=== PATIENT | male | born 1945 ===

== ENCOUNTER 2017-02-09 08:30 | Emergency (ER) | payer MEDICARE ==
[2017-02-09 08:33] VITALS: BMI 23.1
[2017-02-09 08:34] VITALS: TEMP 97.8
--- NOTE | 2017-02-09 09:19 | ED PDOC ---
Lower Extremity Pain/Injury Time Seen by Provider: 02/09/17 09:05 Chief Complaint (Nursing): Lower Extremity Problem/Injury History Per: Patient History/Exam Limitations: no limitations Onset/Duration Of Symptoms: Sudden Onset (yesterday) Severity: Mild Additional Complaint(s): Pt states a TV fell on to his rt big toe last night Past Medical History Reviewed: Historical Data, Nursing Documentation, Vital Signs Vital Signs: Last Vital Signs Temp 97.8 F 02/09/17 08:32 Pulse 101 H 02/09/17 08:32 Resp 19 02/09/17 08:32 BP 150/86 02/09/17 08:32 Pulse Ox 100 02/09/17 08:32 - Family History Family History: States: Unknown Family Hx - Living Arrangements Living Arrangements: With Family - Social History Current smoker - smoking cessation education provided: No - Home Medications Home Medications: Ambulatory Orders Medication Instructions Recorded Ibuprofen [Motrin Tab] 400 mg PO QID PRN #30 tab 02/09/17 - Allergies Allergies/Adverse Reactions: Allergies Allergy/AdvReac Type Severity Reaction Status Date / Time No Known Allergies Allergy Verified 02/09/17 08:52 Review of Systems Cardiovascular: Negative for: Chest Pain Respiratory: Negative for: Cough, Shortness of Breath Musculoskeletal: Positive for: Foot Pain (right great toe nml rom) Neurological: Negative for: Weakness, Numbness Physical Exam - Reviewed Nursing Documentation Reviewed: Yes Vital Signs Reviewed: Yes - Physical Exam Appears: Positive for: Uncomfortable Head Exam: Positive for: ATRAUMATIC, NORMAL INSPECTION, NORMOCEPHALIC Cardiovascular/Chest: Positive for: Regular Rate, Rhythm, Chest Non Tender. Negative for: Edema, Gallop, Murmur, Bradycardia, Tachycardia Respiratory: Positive for: Normal Breath Sounds. Negative for: Decreased Breath Sounds, Accessory Muscle Use, Crackles Extremity: Negative for: Other (right great toe with eccymoses mild tenderness full rom nvi) Neurologic/Psych: Positive for: Alert, industrial analyst II-XII, Oriented, Gait (steady). Negative for: Motor/Sensory Deficits - ECG O2 Sat by Pulse Oximetry: 100 Pulse Ox Interpretation: Normal - Other Rad No standard instances X-Ray: Interpreted by Me X-Ray Interpretation: rigt great toe distal phlanx fracture no swelling no dislocation - Progress ED Course And Treament: right great toe ramiro taped Re-evaluation Time: 10:03 Condition: Improved Disposition - Clinical Impression Clinical Impression: Closed fracture of right great toe - Patient ED Disposition Is Patient to be Admitted: No Counseled Patient/Family Regarding: Studies Performed, Diagnosis, Need For Followup - Disposition Referrals: Podiatry Clinic [Outside] Disposition: Routine/Home Disposition Time: 10:01 Condition: GOOD Prescriptions: Ibuprofen [Motrin Tab] 400 mg PO QID PRN #30 tab PRN Reason: Pain, Moderate (4-7) Instructions: Toe Fracture (ED)
[2017-02-09 10:25] VITALS: BP 132/75; PULSE 70; RESP 16; O2SAT 99
--- NOTE | 2017-02-09 15:52 | RAD ---
PROCEDURE: Radiographs of the right great toe. TECHNIQUE:: AP radiograph of the right foot, with oblique and lateral view of the right great toe. COMPARISON: None. FINDINGS: BONES: There is no acute displaced fracture or dislocation. Bone alignment and mineralization are normal. There is a prominent plantar calcaneal spur. JOINTS: Normal. SOFT TISSUES: Normal. OTHER FINDINGS: There are atherosclerotic vascular calcifications. IMPRESSION: No acute fracture or dislocation.
== END 2017-02-09 10:25 | disposition home or self-care (01) ==
LOC: H.ER 08:30
DX: S92.411A Displaced fracture of proximal phalanx of right great toe, initial encounter for closed fracture (principal); W22.8XXA Striking against or struck by other objects, initial encounter; Y92.89 Other specified places as the place of occurrence of the external cause